=== PATIENT | female | born 1985 | race Caucasian/White ===

== ENCOUNTER → 2016-08-29 | Day surgery (SDC) | payer OTHER ==
--- NOTE | 2016-08-28 18:23 | History & Physical Pre-Op ---
General Information and HPI MD Statement: I have seen and personally examined CLEM BECKER and documented this H&P. The patient is a 31 year old F who presented with a patient stated chief complaint of []. History of Present Illness: Patient is a 31-year-old 7 para 3 who desires permanent sterilization. She understands the procedure is permanent and irreversible with a low failure rate and wishes to proceed. Allergies/Medications Allergies: Coded Allergies: Penicillins (Severe, HIVES 05/21/16) Sulfa (Sulfonamide Antibiotics) (UNKNOWN 05/21/16) ciprofloxacin (From Cipro) (UNKNOWN 05/21/16) nitrofurantoin (UNKNOWN 05/21/16) Home Med list Docusate Sodium 100 MG CAPSULE 100 MG PO BID PRN STOOL SOFTENER Ibuprofen 800 MG TABLET 800 MG PO Q6P PRN UTERINE CRAMPING Past History Medical History Gastrointestinal: hepatitis C Surgical History Pertinent Surgical History: none Review of Systems Review of Systems Constitutional: Reports: no symptoms. EENTM: Reports: no symptoms. Cardiovascular: Reports: no symptoms. Respiratory: Reports: no symptoms. GI: Reports: no symptoms. Genitourinary: Reports: no symptoms. Musculoskeletal: Reports: no symptoms. Skin: Reports: no symptoms. Neurological/Psychological: Reports: no symptoms. Hematologic/Endocrine: Reports: no symptoms. Immunologic/Allergic: Reports: no symptoms. All Other Systems: Reviewed and Negative Exam & Diagnostic Data Last 24 Hrs of Vital Signs/I&O vss Physical Exam: HEENT: Normocephalic atraumatic Chest: Clear to auscultation bilaterally Cardiovascular: Normal S1-S2 Abdomen: Soft nontender nondistended Extremities: Positive clubbing, no cyanosis or edema Assessment/Plan Assessment/Plan: Multiparity, desires permanent sterilization Plan: Laparoscopic tubal sterilization As Ranked By This Provider Problem List: 1. Multiparity
[~2016-08-29] VITALS: Ht 154.9 cm; Wt 51.3 kg
[~2016-08-29] MED LIST: DOCUSATE SODIU100 M3 PO; IBUPROFEN800 M1 PO
--- NOTE | 2016-09-06 09:43 | Operative Report ---
See Addendum Operative/Inv Procedure Report Surgery Date: 08/29/16 Name of Procedure: Laparoscopic tubal sterilization Pre-Operative Diagnosis: Multi parity Post-Operative Diagnosis: Same Estimated Blood Loss: less than 50ml Surgeon/Advertising Layout Worker: STEPHANIE GUZMÁN MD Anesthesia: general endotracheal tube Operative/Procedure Note Note: The patient was brought to the operating room placed on the OR table in the dorsal supine position. She was given adequate anesthesia and successfully intubated. She was repositioned in modified dorsal lithotomy prepped and draped in usual sterile fashion. A weighted speculum inserted into the vagina CO2 tenaculum was attached to the anterior lip of the cervix. An acorn cannula was inserted into the cervix and attached to the tenaculum. A Gonzalez catheter was placed and drained clear yellow urine. Surgeon's gloves were changed at this point and the abdomen was visualized. A single infraumbilical skin incision was made in the very thin was placed into the abdominal cavity. The abdomen was insufflated with CO2 gas under high flow and low pressure until an adequate pneumoperitoneum was achieved. At this point appears needle was removed and replaced with a 5 mm disposable trocar. The trocar was removed leaving sleeve in place and the camera was placed the sleeve revealing good anatomic location and hemostasis. The patient was placed into Trendelenburg position. A stab incision was made with the scalpel in the suprapubic region and a 5 mm disposable trocar was inserted under direct visualization. Through this trocar sleeve the Kleppinger bipolar cautery was placed and both fallopian tubes were grasped sequentially and coagulated adequately. Uterus with tubes and ovaries were noted to be normal as well as her gallbladder. No other pathology was noted. At the end of the procedure the CO2 gas was allowed to escape the abdomen the isthmus removed and the incisions were closed with 3-0 Biosyn. There were dressed. The vaginal instruments and the Gonzalez were removed patient was awakened and sent to recovery in good condition. All needle, sponge, and management counts were correct at the end of the procedure 2.
== END ==
LOC: STS 01:42
DX: Z30.2 Encounter for sterilization (principal); D23.5 Other benign neoplasm of skin of trunk; F17.200 Nicotine dependence, unspecified, uncomplicated
CPT/HCPCS: 81025; 88305; J0131; J2250